=== PATIENT | male | born 1945 | race Caucasian/White ===

== ENCOUNTER 2022-05-01 12:33 | Outpatient (CLI) | payer MEDICARE | END 2022-05-01 12:34 | disposition home or self-care (01) | LOC: CSHLAB 12:33 | PROVIDERS: ATTEND Surgery | DX: Z01.818 Encounter for other preprocedural examination (principal); K40.90 Unilateral inguinal hernia, without obstruction or gangrene, not specified as recurrent | CPT/HCPCS: 93005; 93010 ==

== ENCOUNTER 2022-05-03 06:24 | Day surgery (SDC) | payer MEDICARE ==
[2022-05-02 09:03] VITALS: BMI 28.7
[2022-05-03] MEDS ORDERED: EPINEPHrine 1 MG/ML AMP ONE (06:45)
[2022-05-03] MEDS ORDERED: Bupivacaine PF 0.5% 30 ML VIAL ONE (06:45)
[2022-05-03] MEDS ORDERED: CEFAZOLIN 2 GM VIAL ONE (08:01)
[2022-05-03] MEDS ORDERED: PROPOFOL 20 ML ONE (08:03)
[2022-05-03] MEDS ORDERED: Fentanyl 100 MCG/2 ML VIAL ONE ×2 (08:03→09:47)
[2022-05-03] MEDS ORDERED: Rocuronium Bromide 10 MG/ML (10ML VIAL) ONE (08:03)
[2022-05-03] MEDS ORDERED: Ondansetron PF 4 MG/2 ML Vial ONE (08:03)
[2022-05-03] MEDS ORDERED: Dexamethasone 4 mg/ml Vial ONE (08:03)
[2022-05-03] MEDS ORDERED: Esmolol 100 MG/10 ML VIAL ONE (08:04)
[2022-05-03] MEDS ORDERED: Lidocaine 1% PF 5 ML VIAL ONE (08:04)
[2022-05-03] MEDS ORDERED: HYDROmorphone 0.5 MG/0.5 ML SYRINGE ONE (08:07)
[2022-05-03] MEDS ORDERED: SUGAMMADEX SODIUM 200 MG/2 ML VIAL ONE (08:07)
[2022-05-03] MEDS ORDERED: Ketorolac Tromethamine 30 MG/ML VIAL ONE (09:07)
[2022-05-03] MEDS ORDERED: traMADol HCl 50 MG TAB PO PRN (09:32)
[2022-05-03] MEDS ORDERED: Acetaminophen 325 MG TAB PO PRN (09:32)
[2022-05-03] MEDS ORDERED: traMADol HCl 50 MG TAB ONE (10:52)
== END 2022-05-03 11:35 | disposition home or self-care (01) ==
LOC: CSHSDC 06:24
PROVIDERS: ATTEND Surgery
PROC: 0YU647Z Supplement Left Inguinal Region with Autologous Tissue Substitute, Percutaneous Endoscopic Approach (ICD-10-PCS; principal; 2022-05-03)
DX: K40.90 Unilateral inguinal hernia, without obstruction or gangrene, not specified as recurrent (principal); Z79.899 Other long term (current) drug therapy; Z88.5 Allergy status to narcotic agent
CPT/HCPCS: 49650; C1713 ×2; J0171; J1100; J1170; J1885; J2405; J2704; J3010; S0020